=== PATIENT | female | born 1950 | race Caucasian/White ===

== ENCOUNTER → 2017-02-18 | Outpatient (CLI) | payer MEDICARE ==
--- NOTE | 2017-02-18 12:42 | RAD ---
Indication shortness of breath for a week. Frontal and lateral views of the chest were obtained. No prior imaging of the chest is available. The heart, pulmonary vessels and mediastinum appear within normal limits. A focal infiltrate is not seen. Significant pleural fluid is not present and there is no pneumothorax. The visualized bony structures appear grossly intact. IMPRESSION: No acute or focal process is seen in the chest
--- NOTE | 2017-02-18 12:43 | RAD ---
Indication left leg pain for several weeks. Grayscale color Doppler and spectral imaging was performed. The examination was targeted to the veins of the left lower extremity. The common femoral vein appears normal. The femoral vein is also normal. The popliteal vein is normal. No thrombus is seen. The visualized calf veins appeared unremarkable. The right common femoral vein was imaged and also appeared unremarkable. IMPRESSION: Negative left lower extremity venous analysis for DVT
== END | disposition home or self-care (01) ==
LOC: US 11:26
PROVIDERS: ATTEND Family Medicine
DX: M79.605 Pain in left leg (principal); R06.02 Shortness of breath
CPT/HCPCS: 71020; 93971